=== PATIENT | female | born 1940 | race Caucasian/White ===

== ENCOUNTER → 2019-11-21 | Outpatient (CLI) | payer MEDICARE, OTHER ==
--- NOTE | 2019-11-21 15:53 | RAD ---
EXAM: Chest, 2 views. HISTORY: Pacemaker placement. COMPARISON: None. FINDINGS: 2 views of chest are obtained. There are suspected small bilateral pleural effusions. There is mild diffuse increased interstitial opacity likely due to chronic interstitial change. There is cardiomegaly. There is a tortuous thoracic aorta. There is evidence of prior median sternotomy and aortic valve surgery. There is a cardiac pacemaker with 3 leads overlying expected position. There are right axillary clips. There are calcified granulomas. There is hyperinflation likely due to emphysema. There is dense calcification of the mitral valve annulus. IMPRESSION: 1. Suspected emphysema with chronic interstitial prominence and small pleural effusions. 2. Cardiomegaly and postoperative mediastinal changes. Electronically signed by: Terra Prescott MD (11/21/2019 3:50 PM) [place] [id number]
== END | disposition home or self-care (01) ==
LOC: RAD 14:47
PROVIDERS: ATTEND Internal Medicine Cardiovascular Disease
DX: I51.7 Cardiomegaly (principal); J90 Pleural effusion, not elsewhere classified; I34.8 Other nonrheumatic mitral valve disorders; Z95.0 Presence of cardiac pacemaker
CPT/HCPCS: 71046